=== PATIENT | female | born 1950 | race Caucasian/White ===

== ENCOUNTER → 2018-04-02 | Outpatient (CLI) | payer MEDICARE, OTHER ==
--- NOTE | 2018-04-13 08:44 | USB ---
Reason for exam: additional evaluation requested from prior study. History: Patient is postmenopausal. Family history of breast cancer in maternal aunt. Benign excisional biopsy of the left breast. Physical Findings: Nurse did not find any significant physical abnormalities on exam. US Breast LT Left complete breast ultrasound includes all four quadrants, the retroareolar region and axilla. Finding demonstrates no cystic or solid lesion seen. No suspicious sonographic finding. Dense tissue represents the mammographic findings other than distortion. These results were verbally communicated with the patient 04/13/18. ASSESSMENT: Incomplete: need additional imaging evaluation, BI-RAD 0 RECOMMENDATION: Special view mammogram of the left breast. (spot compression views) [facility] will attempt to contact patient to return for supplemental views.
== END | disposition home or self-care (01) ==
LOC: RADUSWWP 08:41
PROVIDERS: ATTEND Internal Medicine Geriatric Medicine
DX: R92.2 Inconclusive mammogram (principal)

== ENCOUNTER → 2018-04-22 | Outpatient (CLI) | payer MEDICARE, OTHER ==
--- NOTE | 2018-04-23 11:06 | MM ---
Reason for exam: additional evaluation requested from abnormal screening. Last mammogram was performed 1 year and 7 months ago. History: Patient is postmenopausal. Family history of breast cancer in maternal aunt. Benign excisional biopsy of the left breast. Physical Findings: Nurse did not find any significant physical abnormalities on exam. MG 3D Work Up W/Cad LT Spot compression CC, spot compression MLO, and LM view(s) were taken of the left breast. Prior study comparison: September 13, 2016, bilateral MG 3d screening mammo w/cad. August 18, 2015, bilateral MG screening mammo w CAD. The breast tissue is extremely dense which could obscure a lesion on mammography. Benign calcifications in the left breast. Upper outer quadrant posterior depth left architectural distortion appears similar to priors and is compatible with the now provided history of prior surgical intervention with overlying scar marker. These results were verbally communicated with the patient and result sheet given to the patient on 04/22/18. ASSESSMENT: Benign, BI-RAD 2 RECOMMENDATION: Routine screening mammogram of both breasts in 1 year.
== END | disposition home or self-care (01) ==
LOC: RADMAMWWP 15:11
PROVIDERS: ATTEND Internal Medicine Geriatric Medicine
DX: R92.8 Other abnormal and inconclusive findings on diagnostic imaging of breast (principal)
CPT/HCPCS: 77065; G0279; 77061

== ENCOUNTER → 2020-05-03 | Outpatient (CLI) | payer MEDICARE, OTHER ==
--- NOTE | 2020-05-04 13:42 | BD ---
EXAMINATION TYPE: Axial Bone Density DATE OF EXAM: 05/03/2020 COMPARISON: NONE CLINICAL HISTORY: Height: 60 Weight: 119.2 FRAX RISK QUESTIONS: Alcohol (3 or more units per day): NO Family History (Parent hip fracture): NO Glucocorticoids (More than 3mos): NO (Ex: prednisone, prednisolone, methylprednisolone, dexamethasone, and hydrocortisone). History of Fracture in Adulthood: NO Secondary Osteoporosis: 1. Type 1 Diabetes: NO 2. Hyperthyroidism: NO 3. Menopause before 45: NO 4. Malnutrition: NO 5. Chronic liver disease: NO Rheumatoid Arthritis: YES Current Tobacco Use: NO RISK FACTORS HISTORY OF: Family History of Osteoporosis: NO Active: YES Diet low in dairy products/other sources of calcium: NO Postmenopausal woman: AGE 45 MEDICATIONS: LIPITOR Thyroid Medications: SYNTHROID How Lon YEARS Additional History: EXAM MEASUREMENTS: Bone mineral densitometry was performed using the [employer] System. Bone mineral density as measured about the Lumbar spine is: ----- L1-L4(G/cm2): 1.200 T Score Values are as follows: ----- L2: -1.3 ----- L3: 1.4 ----- L4: 0.7 ----- L1-L4: 0.2 Bone mineral density has: DECREASED -2.6 % since study of: 09.18.2015 Bone mineral density about the R hip (g/cm2): 0.859 Bone mineral density about the L hip (g/cm2): 0.852 T Score values are as follows: -----R Neck: -1.3 -----L Neck: -1.3 -----R Total: -2.4 -----L Total: -2.7 Bone mineral density has: DECREASED -0.6 % since study of: 09.18.2015 IMPRESSION: Osteoporosis (T Score less than -2.5). There is increased fracture risk and therapy is usually indicated based on age. Re-Screen 1-2 years. NOTE: T-SCORE=SD OF THE YOUNG ADULT MEAN.
== END | disposition home or self-care (01) ==
LOC: RADBDWWP 07:58
PROVIDERS: ATTEND Internal Medicine Geriatric Medicine
DX: M81.8 Other osteoporosis without current pathological fracture (principal)
CPT/HCPCS: 77080

== ENCOUNTER → 2020-10-02 | Outpatient (CLI) | payer MEDICARE, OTHER ==
--- NOTE | 2020-10-02 17:39 | XR ---
EXAMINATION TYPE: XR chest 2V DATE OF EXAM: 10/02/2020 CLINICAL HISTORY: R05 Cough. TECHNIQUE: Frontal and lateral view of the chest. COMPARISON: 10/18/2016 chest radiograph FINDINGS: The cardiomediastinal silhouette is within normal limits for size. Pulmonary vasculature i s normal. There is no focal air space opacity, pleural effusion, or pneumothorax seen. Degenerative c hanges of the spine, bilateral shoulders and acromioclavicular joints. IMPRESSION: No acute cardiopulmonary process.
== END | disposition home or self-care (01) ==
LOC: RADXRMAIN 11:31
PROVIDERS: ATTEND Internal Medicine Geriatric Medicine
DX: R05 Cough (principal)
CPT/HCPCS: 71046

== ENCOUNTER → 2022-07-12 | Outpatient (CLI) | payer MEDICARE, OTHER ==
--- NOTE | 2022-07-12 17:13 | CA ---
Stress Echo Report Angelita Diaz Age: 71 Gender: F : 1950 Exam Date: 07/12/2022 09:21 Exam Location: [facility] [facility] Ht (in): 61 Wt (lb): 115 Ordering Physician: Manoj Winchester MD Referring Physician: ROMAN,, Rice Drier: Chapis Nguyen RDCS Technologist Procedure CPT: Indication: I20.9 ICD-9 Codes: Rhythm: Patient History: Cardiac Medications: LIPITOR,,,,,, SYNTHROID,,,,, Medications in past 24 hours: Contrast: Stress Results Protocol: Phillip Total dose(mL): Exercise Duration (min:sec): Max ST Depression (mm): Angina Score: Watson Score: METS: 10.5 Resting HR: 69 Resting BP: 142 / 74 Peak HR: 147 Peak BP: 167 / 71 Max Predicted HR: 149 99 % Max Predicted HR Target HR: 127 Double Product: [id number] Stress Summary: BP Response: Reason for Termination: MAX EXERTION/TARGET HR Cardiac Symptoms: NO SYMPTOMS ECG Analysis Resting ECG: Stress ECG: Arrhythmia: Echo Analysis Resting Echo: Peak Echo Analysis: MEASUREMENTS (Male/Female) Normal Values CONCLUSIONS Patient underwent exercise stress echo with a Phillip protocol treadmill stress test. Patient exercised into Stage 3 for a total of 9 minutes 1 second reaching a total of 10.5 METS. Patient's maximum heart rate was 147 which represented 98 % age- predicted maximum heart rate. Stress EKG portion: At baseline patient's EKG showed normal sinus rhythm, normal axis, T-wave inversions V1 through V4. At peak exercise, EKG showed no significant change from baseline. Stress echo portion: 2-D echocardiogram was performed in the parasternal long, personal short, apical 2 and apical four-chamber views at rest, peak exercise and in recovery. At baseline, echocardiogram showed left ventricular ejection fraction 55 % without wall motion abnormalities. With peak exercise, echocardiogram shows improvement in left ventricular ejection fraction, increase contractility, decrease in left ventricular end systolic dimension without wall motion abnormalities consistent with a normal response to exercise. Conclusions: 1. Nonspecific EKG portion secondary baseline EKG abnormalities 2. Normal echo response to exercise without evidence of inducible ischemia. 3. Good exercise capacity. 4. Normal left ventricular EF 55%. Dr. Julio C Colbert DO (Electronically Signed) Final Date: 12 July 2022 17:12
== END | disposition home or self-care (01) ==
LOC: RADNMMAIN 08:42
PROVIDERS: ATTEND Internal Medicine Geriatric Medicine
DX: I20.9 Angina pectoris, unspecified (principal)
CPT/HCPCS: 93351

== ENCOUNTER → 2024-09-01 | Outpatient (CLI) | payer MEDICARE, OTHER ==
--- NOTE | 2024-09-02 08:48 | BD ---
EXAMINATION TYPE: Axial Bone Density DATE OF EXAM: 09/01/2024 CLINICAL HISTORY: 73 years old Female. ICD-10 CODE: Z12.31 Screening mammogram; Z13.820 Height: 4 ft 11 3/4 in Weight: 120 FRAX RISK QUESTIONS: Alcohol (3 or more units per day): no Family History (Parent hip fracture): no Glucocorticoids (More than 3mos): no (Ex: prednisone, prednisolone, methylprednisolone, dexamethasone, and hydrocortisone). History of Fracture in Adulthood: no Secondary Osteoporosis: 1. Type 1 Diabetes: no 2. Hyperthyroidism: no 3. Menopause before 45: yes 4. Malnutrition: no 5. Chronic liver disease: no Rheumatoid Arthritis: no Current Tobacco Use: no RISK FACTORS HISTORY OF: Surgery to Spine/Hip(right/left)/Wrist (right/left): no MEDICATIONS: Thyroid Medications: yes Which medication: synthroid How Lon years Osteoporosis Medications: yes Which medication: fosamax How Lon years EXAM MEASUREMENTS: Bone mineral densitometry was performed using the [employer] System. Bone mineral density as measured about the Lumbar spine is: ----- L1-L4(G/cm2): 1.408 T Score Values are as follows: ----- L1: 3.3 ----- L2: 0.4 ----- L3: 2.6 ----- L4: 1.5 ----- L1-L4: 1.9 Z Score Values are as follows: ----- L1: 5.4 ----- L2: 2.4 ----- L3: 4.7 ----- L4: 3.6 ----- L1-L4: 4.0 Bone mineral density has: increased 7.7 % since study of: 2019 Bone mineral density about the R hip (g/cm2): 0.867 Bone mineral density about the L hip (g/cm2): 0.986 T Score values are as follows: -----R Neck: -1.2 -----L Neck: -0.4 -----R Total: -2.0 -----L Total: -1.9 Z Score values are as follows: -----R Neck: 0.9 -----L Neck: 1.7 -----R Total: -0.1 -----L Total: 0.0 Bone mineral density has: increased 10.7 % since study of: 2020 FRAX%s: The graph provided illustrates a 12.6 % chance for a major osteoporotic fx and a 2.2 % chance for the hips probability for fx in 10 years time. IMPRESSION: Osteopenia (T Score between -2.5 and -1). There is slightly increased risk of fracture and the patient may be considered for treatment. Re-Screen 2-5 years. NOTE: T-SCORE=SD OF THE YOUNG ADULT MEAN. [facility], , 09/02/2024 8:46 AM
--- NOTE | 2024-09-02 09:48 | MM ---
Reason for Exam: Screening (asymptomatic). Last mammogram was performed 7 year(s) and 11 month(s) ago. Patient History: Menarche at age 13. First Full-Term at age 21. Postmenopausal. Benign Excisional Biopsy on the left side. Maternal aunt had breast cancer. Risk Values: Desiree 5 year model risk: 1.9%. NCI Lifetime model risk: 4.6%. Prior Study Comparison: 08/18/2015 Bilateral Screening Mammogram, [facility]. 09/13/2016 Bilateral Screening Mammogram, [facility]. 04/22/2018 Left Diagnostic Mammogram, [facility]. Tissue Density: The breasts are extremely dense, which lowers the sensitivity of mammography. Findings: Analyzed By CAD. There is no suspicious group of microcalcifications or new suspicious mass in either breast. Overall Assessment: Benign, BI-RAD 2 Management: Screening Mammogram of both breasts in 1 year. . Patient should continue monthly self-breast exams. A clinical breast exam by your physician is recommended on an annual basis. This exam should not preclude additional follow-up of suspicious palpable abnormalities. Note on Desiree scores and lifetime risk: 1. A Desiree score greater than 3% is considered moderate risk. If this is the case, consider specialist referral to assess eligibility for a risk reducing agent. 2. If overall lifetime risk for the development of breast cancer is 20% or higher, the patient may qualify for future screening with alternating mammogram and breast MRI. [facility], , 09/02/2024 9:45 AM. Electronically signed and approved by: Lamberto Bernal M.D. Radiologis
== END | disposition home or self-care (01) ==
LOC: RADMAMWWP 13:42
PROVIDERS: ATTEND Internal Medicine Geriatric Medicine
CPT/HCPCS: 77063; 77067; 77080

== ENCOUNTER 2024-09-16 22:38 | Emergency (ER) | payer MEDICARE, OTHER ==
[2024-09-16 22:53] VITALS: RESP 18; TEMP 98.6
--- NOTE | 2024-09-16 23:13 | XR ---
EXAMINATION TYPE: XR chest 2V DATE OF EXAM: 09/16/2024 COMPARISON: Chest x-ray October 02, 2020 HISTORY: Cough TECHNIQUE: Frontal and lateral views of the chest are obtained. FINDINGS: Overlying bra strap is seen making evaluation slightly suboptimal. There is no focal air sp alejandro opacity, pleural effusion, or pneumothorax seen. The cardiac silhouette size remains within norm al limits. The osseous structures are intact. IMPRESSION: No acute pulmonary infiltrate [facility], , 09/16/2024 11:11 PM
--- NOTE | 2024-09-16 23:37 | ED ---
General Adult HPI - General Chief complaint: Upper Respiratory Infection Stated complaint: Cough, Fever Time Seen by Provider: 09/16/24 23:14 Source: patient Mode of arrival: ambulatory Limitations: no limitations - History of Present Illness Initial comments: Pt is a previously well 73 y/o female presenting for persistent cough x 3 days. Pt states she recently returned from a retreat and began having symptoms the day of return. Pt describes cough productive of clear sputum. States that she coughs so much she gets to the point where she feels like she can't breath otherwise denies shortness of breath. 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 Pt was seen at an urgent care yesterday and tested negative for COVID. She was prescribed a zpack and steroids as well as an albuterol inhaler. Additionally pt has been using tessalon perles for her cough without relief. Denies chest pain, LE swelling, hemoptysis. - Related Data Home Medications Medication Instructions Recorded Confirmed ALPRAZolam [Xanax] 0.25 mg PO DAILY PRN 09/15/14 09/23/14 Atorvastatin [Lipitor] 10 mg PO HS 09/15/14 09/23/14 Levothyroxine Sodium [Synthroid] 100 mcg PO DAILY 09/15/14 09/23/14 Previous Rx's Medication Instructions Recorded HYDROcodone/APAP 7.5-325MG [Nicasio 1 - 2 each PO Q6H PRN #90 tab 09/25/14 7.5-325] Warfarin [Coumadin] 2.5 mg PO DAILY #1 tab 09/25/14 Allergies Allergy/AdvReac Type Severity Reaction Status Date / Time No Known Allergies Allergy Verified 09/16/24 22:53 Review of Systems ROS Statement: Those systems with pertinent positive or pertinent negative responses have been documented in the HPI. ROS Other: All systems not noted in ROS Statement are negative. Past Medical History Past Medical History: Hyperlipidemia, Osteoarthritis (OA) Additional Past Medical History / Comment(s): Hypo-THYROID, colon polyp 2007 benign, sigmoid diverticulosis History of Any Multi-Drug Resistant Organisms: None Reported Past Surgical History: Section Additional Past Surgical History / Comment(s): EAR SURGERY Past Anesthesia/Blood Transfusion Reactions: No Reported Reaction Past Psychological History: Anxiety Smoking Status: Never smoker Past Alcohol Use History: Occasional Past Drug Use History: None Reported - Past Family History Mother Family Medical History: Cancer General Exam - General Exam Comments Initial Comments: PE: CONSTITUTIONAL: No apparent distress, well appearing SKIN: Warm, dry, no jaundice, hives or petechiae EYES: Pupils are equally round, extraocular movements intact without nystagmus, clear conjunctiva, non-icteric sclera HENT: Normocephalic, atraumatic, moist mucus membranes, oropharynx clear without exudates NECK: , Full range of motion, normal appearance PULMONARY: Scant wheezes in bilateral lung gonzales, no rhonchi, rales or crackles, no stridor, normal excursion, no accessory muscle CARDIOVASCULAR: Regular rate, rhythm, normal S1 and S2. No appreciated murmurs, rubs or gallops. Extremities well perfused No lower extremity edema GASTROINTESTINAL: Soft, nondistended, nontender active bowel sounds MUSCULOSKELETAL: Extremities have no gross deformity, no edema, redness, or swelling. No calf swelling NEUROLOGIC:_a/o x 3, GCS 15, normal mentation and speech. Moves all extremities x 4 without motor or sensory deficit PSYCHIATRIC:_normal mood and affect, thought process is clear and linear Limitations: no limitations Course Vital Signs 09/16/24 09/16/24 22:50 23:48 Temperature 98.6 F Pulse Rate 71 75 Respiratory 18 18 Rate Blood Pressure 151/75 146/80 O2 Sat by Pulse 96 94 L Oximetry Medical Decision Making - Medical Decision Making Was pt. sent in by a medical professional or institution (, PA, CONVEYOR WEIGHER OPERATOR, urgent care, hospital, or shelter...) When possible be specific @ -No Did you speak to anyone other than the patient for history (EMS, parent, family, police, friend...)? What history was obtained from this source @ -No Did you review nursing and triage notes (agree or disagree)? Why? @ -I reviewed and agree with nursing and triage notes Were old charts reviewed (outside hosp., previous admission, EMS record, old EKG, old radiological studies, urgent care reports/EKG's, shelter records)? Report findings Medical records reviewed Differential Diagnosis (chest pain, altered mental status, abdominal pain women, abdominal pain men, vaginal bleeding, weakness, fever, dyspnea, syncope, headache, dizziness, GI bleed, back pain, seizure, CVA, palpatations, mental health, musculoskeletal)? @ -Differential diagnosis remains broad however top considerations include acute bronchitis, viral URI, sinusitis, pneumonia this is not all inclusive list EKG interpreted by me (3pts min.). @ -As above X-rays interpreted by me (1pt min.). @No cardiomegaly, pleural effusions, no consolidations CT interpreted by me (1pt min.). @ -None done U/S interpreted by me (1pt. min.). @ -None done What testing was considered but not performed or refused? (CT, X-rays, U/S, labs)? Why? @ -None What meds were considered but not given or refused? Why? @ -None Did you discuss the management of the patient with other professionals (professionals i.e. , PA, CONVEYOR WEIGHER OPERATOR, lab, RT, psych nurse, social scientist, solo musician, teacher, professional security officer, case repairer)? Give summary @ -No Was smoking cessation discussed for >3mins.? @ -No Was critical care preformed (if so, how long)? @ -No Were there social determinants of health that impacted care today? How? (Homelessness, low income, unemployed, alcoholism, drug addiction, transportation, low edu. Level, literacy, decrease access to med. care, group home, rehab)? @ -No Was there de-escalation of care discussed even if they declined (Discuss DNR or withdrawal of care, Hospice)? @ -No What co-morbidities impacted this encounter? (DM, HTN, Smoking, COPD, CAD, Cancer, CVA, ARF, Chemo, Hep., AIDS, mental health diagnosis, sleep apnea, morbid obesity)? @ -None Was patient admitted / discharged? Hospital course, mention meds given and route, prescriptions, significant lab abnormalities, going to OR and other pertinent info. @ Discharged- Pt is a pleasant 73 y/o female, no sig. PMH presenting for cough and fever x 2-3 days. No fever on arrival here. On my exam pt well appearing and in NAD. Scant wheezes in bilateral lung gonzales, otherwise no focal breath sounds, no LE edema. Performed ambulatory biox at bedside with patient and pulse ox stayed above 95%, no tachycardia or increased work of breathing during this period. CXR shows no consolidations. Pt already prescribed steroids albuterol inhaler and zpack from urgent care. Discussed with patient symptomatic care and offered duo neb here. Pt politely declined duoneb. Discussed plan for discharge home. Pt agreeable with discharge. In my medical judgment there is currently no evidence of an immediate life- threatening or surgical condition. Discharge is therefore indicated at this time. Discharge treatment instructions, follow up instructions, and appropriate emergency department return precautions were discussed with the patient and/or medical decision maker. Patient and/or medical decision maker expressed understanding of and agreed with the treatment plan, follow up instructions, and emergency department return precaution. All patient's and/or medical decision maker's questions were answered. Undiagnosed new problem with uncertain prognosis? @ -No Drug Therapy requiring intensive monitoring for toxicity (Heparin, Nitro, Insulin, Cardizem)? @ -No Were any procedures done? @ -No Diagnosis/symptom? @ -Acute bronchitis Acute, or Chronic, or Acute on Chronic? @Acute Uncomplicated (without systemic symptoms) or Complicated (systemic symptoms)? @Uncomplicated Side effects of treatment? @ -No Exacerbation, Progression, or Severe Exacerbation? @ -No Poses a threat to life or bodily function? How? (Chest pain, USA, AR, pneumonia, PE, COPD, DKA, ARF, appy, cholecystitis, CVA, Diverticulitis, Homicidal, Suicidal, threat to staff... and all critical care pts) @ -No - Lab Data Lab Results 09/16/24 Range/Units 22:57 Influenza Type A (PCR) Not Detected (Not Detectd) Influenza Type B (PCR) Not Detected (Not Detectd) RSV (PCR) Not Detected (Not Detectd) SARS-CoV-2 (PCR) Not Detected (Not Detectd) Disposition Clinical Impression: Acute bronchitis Disposition: HOME SELF-CARE Condition: Good Instructions (If sedation given, give patient instructions): Upper Respiratory Infection (ED) Additional Instructions: Every disease is a spectrum and a small chance still exists that a serious condition could develop, for this reason, please monitor yourself closely for new, changing or worsening symptoms, symptoms that do not begin to improve in 72 hours, coughing up thick or colored sputum, coughing up blood, difficulty in breathing, chest pain, dizziness or lightheadedness, fevers for more than 5 days, if you use home pulse oximeter and your oxygen levels go less than 92% inability to tolerate/keep down fluids or your medications, inability to follow up with outpatient providers as instructed and should you experience these symptoms or should you have any further concerns for your wellbeing please return to the ED or call 911 immediately. Please drink plenty fluids get plenty of rest. PLEASE call your primary care physician as soon as possible to arrange / discuss plan for followup appointment. Appointment in the next 1-3 days is strongly encouraged if possible. PLEASE let us know here before you leave if there is anything further we can do to be of any assistance. Take care and feel Better! Is patient prescribed a controlled substance at d/c from ED?: No Referrals: Manoj Winchester MD [Primary Care Provider] - 1-2 days
[2024-09-16 23:49] VITALS: BP 146/80; PULSE 75
== END 2024-09-16 23:48 | disposition home or self-care (01) ==
LOC: EC 22:38
DX: J20.9 Acute bronchitis, unspecified (principal)
CPT/HCPCS: 71046; 87636; 99284